=== PATIENT | female | born 1955 | race Caucasian/White ===

== ENCOUNTER 2017-04-17 11:37 | Emergency (ER) | payer OTHER ==
[2017-04-17 12:06] VITALS: BP 126/69
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
--- NOTE | 2017-04-17 13:10 | RAD ---
Indication: Left thumb injury. 3 views of the left thumb demonstrates a comminuted fracture of the proximal end of the first metacarpal. No significant displacement is noted. Degenerative changes of the interphalangeal joint is noted. IMPRESSION: Comminuted fracture proximal first metacarpal without significant displacement.
== END 2017-04-17 14:45 | disposition home or self-care (01) ==
LOC: UCCORT 11:37
DX: S62.202A Unspecified fracture of first metacarpal bone, left hand, initial encounter for closed fracture (principal); X50.0XXA Overexertion from strenuous movement or load, initial encounter; Y93.9 Activity, unspecified; Y92.9 Unspecified place or not applicable; Z88.0 Allergy status to penicillin; F17.210 Nicotine dependence, cigarettes, uncomplicated
CPT/HCPCS: 99201; G0463